=== PATIENT | male | born 1950 ===

== ENCOUNTER → 2025-08-09 | Outpatient (CLI) | payer OTHER | END | disposition home or self-care (01) | LOC: RAD 11:13 | DX: R07.9 Chest pain, unspecified (principal) ==

== ENCOUNTER 2025-08-16 12:00 | Inpatient (IN) | payer OTHER ==
[~2025-08-16] VITALS: Ht 274.3 cm; Wt 78.9 kg
[2025-08-16] MEDS ORDERED: SYNTHROID150 MCG PO (13:26)
[2025-08-16] MEDS ORDERED: GLIMEPIRIDE2 MG (13:26)
[2025-08-16] MEDS ORDERED: TOPROL XL25 M1 PO (13:26)
[2025-08-16] MEDS ORDERED: AVAPRO150 MG PO (13:26)
[2025-08-16] MEDS ORDERED: JARDIANCE25 MG PO (13:27)
[2025-08-16] MEDS ORDERED: ALDACTONE25 MG PO (13:27)
[2025-08-23] MEDS ORDERED: AMOX-CLAV 875-1 EACH PO (12:44)
[2025-08-23] MEDS ORDERED: MEDROLPACK PO (12:44)
[2025-08-23] MEDS ORDERED: PERCOCET 5-3251 EACH PO (12:44)
[2025-08-23] MEDS ORDERED: ZOFRAN8 MG PO (12:44)
[2025-08-23] MEDS ORDERED: NEURONTIN800 MG PO (12:45)
[2025-08-23] MEDS ORDERED: GABAPENTIN100 M2 PO (12:45)
[2025-08-23] MEDS ORDERED: COLACE100 MG PO (12:45)
[2025-08-23] MEDS ORDERED: METHYLPREDNISOLONE SOD SUCC 125 MG VIAL IV SCH ×2 (13:30→17:00)
[2025-08-23] MEDS ORDERED: VANCOMYCIN HCL 1,000 MG VIAL IR ONE ×2 (13:30)
[2025-08-23] MEDS ORDERED: BUPIVACAINE HCL 30 ML VIAL IJ ONE (13:30)
[2025-08-23] MEDS ORDERED: KETOROLAC TROMETHAMINE 60 MG VIAL IM ONE (13:30)
[2025-08-23] MEDS ORDERED: LIDOCAINE HCL 1%/EPINEPHRINE 20ML VIAL IJ ONE (13:30)
[2025-08-23] MEDS ORDERED: VANCOMYCIN HCL 1,000 MG VIAL IV SCH ×2 (13:30→21:00)
[2025-08-23] MEDS ORDERED: METHYLPREDNISOLONE ACETATE 80 MG/ML VIAL IM ONE (13:30)
[2025-08-23] MEDS ORDERED: CEFAZOLIN SODIUM 1,000 MG VIAL IV SCH (13:30)
[2025-08-23] MEDS ORDERED: 0.9 % SODIUM CHLORIDE 1,000 ML IV SCH (14:15)
[2025-08-23] MEDS ORDERED: PROMETHAZINE HCL 50 MG/ML AMPUL IM PRN (14:15)
[2025-08-23] MEDS ORDERED: ENALAPRILAT DIHYDRATE 1.25 MG/ML VIAL IV PRN (14:15)
[2025-08-23 16:57] VITALS: BP 126/78; O2SAT 99
[2025-08-23] MEDS ORDERED: MORPHINE SULFATE 4 MG/ML VIAL IV SCH (17:00)
[2025-08-23] MEDS ORDERED: CEFAZOLIN SODIUM 1,000 MG in 0.9 % SODIUM CHLORIDE 50 ML IV SCH (17:00)
[2025-08-23] MEDS ORDERED: DOCUSATE SODIUM 100MG CAP PO SCH (17:00)
[2025-08-23] MEDS ORDERED: ACETAMINOPHEN 500 MG GEL..CAP PO SCH (20:00)
[2025-08-23] MEDS ORDERED: GABAPENTIN 800 MG TABLET PO SCH (21:00)
[2025-08-24] VITALS (9 sets, daily range): BP systolic 109–119; BP diastolic 67–75; O2SAT 90–97
[2025-08-24] MEDS ORDERED: SODIUM CHLORIDE 0.45 % 1,000 ML IV SCH
[2025-08-24] MEDS ORDERED: OxyCODONE HCL 5 MG TABLET (ROXICODONE) PO SCH (06:00)
[2025-08-24] MEDS ORDERED: LEVOTHYROXINE SODIUM 150 MCG TABLET PO SCH (06:00)
[2025-08-24 06:14] LABS: BASO % 0.2 % (0.1-1.2); EOS # 0.00 (0.04-0.54); EOS % 0.0 % (0.7-7.0); LYMPH # 0.53 (1.18-3.74); LYMPH % 3.9 % (19.3-53.1); MEAN PLATELET VOLUME 9.80 fl (9.4-12.4); MONO # 0.27 (0.24-0.82); MONO % 2.0 % (4.7-12.5); NEUT # 12.82 (1.56-6.13); NEUT % 93.5 % (34.0-71.1); RED CELL DISTRIBUTION WIDTH 12.2 % (11.6-14.4)
[2025-08-24 06:43] LABS: BUN CREA RATIO 23.0 (7.0-25.0); CREATININE SERUM 0.94 mg/dL (0.70-1.30); GFR 78.45; GLUCOSE FASTING 165.0 mg/dL (65-100); OSMOLALITY SERUM 290.0 MOSM/KG (275-295)
[2025-08-24] MEDS ORDERED: GLIMEPIRIDE 2 MG TABLET PO SCH (09:00)
[2025-08-24] MEDS ORDERED: METOPROLOL SUCCINATE 25 MG TAB.SR.24H PO SCH (09:00)
[2025-08-24] MEDS ORDERED: SPIRONOLACTONE 25 MG TABLET PO SCH (09:00)
[2025-08-24] MEDS ORDERED: TAMSULOSIN HCL 0.4 MG CAP PO SCH (09:00)
[2025-08-24] MEDS ORDERED: IRBESARTAN 150 MG TABLET PO SCH (09:00)
[2025-08-24] MEDS ORDERED: DEXTROSE 50 % IN WATER 0.5 G/ML DISP.SYRIN IV PRN (12:30)
[2025-08-24] MEDS ORDERED: INSULIN LISPRO 1,000 UNIT/10 ML UNITS SUBCUTANEO PRN (12:30)
[2025-08-25] VITALS (8 sets, daily range): BP systolic 133–154; BP diastolic 80–90; O2SAT 89–99
== END 2025-08-25 16:00 | DRG 428 ==
LOC: SURH 08-23 10:00 → O/R 08-23 10:00 → SURH 08-23 12:00
PROVIDERS: ADMIT Orthopaedic Surgery Orthopaedic Surgery of the Spine; ATTEND Orthopaedic Surgery Orthopaedic Surgery of the Spine
PROC: XRGC0R7 Fusion of 2 or more Lumbar Vertebral Joints using Custom-Made Anatomically Designed Interbody Fusion Device, Open Approach, New Technology Group 7 (ICD-10-PCS; 2025-08-23)
PROC: 0ST20ZZ Resection of Lumbar Vertebral Disc, Open Approach (ICD-10-PCS; 2025-08-23)
PROC: 07DR0ZZ Extraction of Iliac Bone Marrow, Open Approach (ICD-10-PCS; 2025-08-23)
PROC: 4A1104G Monitoring of Peripheral Nervous Electrical Activity, Intraoperative, Open Approach (ICD-10-PCS; 2025-08-23)
PROC: 4A12X4Z Monitoring of Cardiac Electrical Activity, External Approach (ICD-10-PCS; 2025-08-23)
PROC: 0SG1071 Fusion of 2 or more Lumbar Vertebral Joints with Autologous Tissue Substitute, Posterior Approach, Posterior Column, Open Approach (ICD-10-PCS; principal; 2025-08-23 13:45)
DX: M43.16 Spondylolisthesis, lumbar region (principal); M48.062 Spinal stenosis, lumbar region with neurogenic claudication; I10 Essential (primary) hypertension